=== PATIENT | male | born 1950 ===

== ENCOUNTER 2018-07-07 13:05 | Outpatient (CLI) | payer MEDICARE, MEDICAID | END 2018-07-07 13:06 | disposition home or self-care (01) | LOC: C.LAB 13:05 ==

== ENCOUNTER 2018-07-22 11:48 | Outpatient (CLI) | payer MEDICARE, MEDICAID | END 2018-07-22 11:49 | disposition home or self-care (01) | LOC: C.MRIC 11:48 ==